=== PATIENT | female | born 1990 | race Caucasian/White ===

== ENCOUNTER 2022-03-07 18:27 | Emergency (ER) | payer SELFPAY ==
[~2022-03-07] VITALS: Ht 154.9 cm; Wt 49.9 kg
[2022-03-07 18:37] VITALS: BP 105/64
--- NOTE | 2022-03-07 18:54 | NUR ---
C/O UNKNOWN GESTATION TIME & EPIGASTRIC PAIN. PT STATES, "ITS LIKE WHEN IM RUNNING." PMH: DENIES MEDS: DENIES
--- NOTE | 2022-03-07 19:06 | NUR ---
Patient discharged with v/s stable. Written and verbal after care instructions given and explained. Patient verbalized understanding. Ambulatory with steady gait. All questions addressed prior to discharge. Advised to follow up with PMD.
== END 2022-03-07 19:06 | disposition home or self-care (01) ==
LOC: MED 18:27
DX: R10.13 Epigastric pain (principal); Z98.890 Other specified postprocedural states
CPT/HCPCS: 81002; 81025; 99282

== ENCOUNTER 2023-07-05 13:10 | Emergency (ER) | payer SELFPAY | END 2023-07-05 14:17 | disposition left against medical advice (07) | LOC: MED 13:10 | DX: R07.89 Other chest pain (principal); Z53.21 Procedure and treatment not carried out due to patient leaving prior to being seen by health care provider ==